=== PATIENT | male | born 1940 | race Two or more races ===

== ENCOUNTER 2021-03-27 15:27 | Emergency (ER) | payer OTHER ==
[~2021-03-27] VITALS: Ht 165.1 cm; Wt 53.1 kg
[2021-03-27] MEDS ORDERED: METAMUCIL0.4 GM (15:49)
[2021-03-27] MEDS ORDERED: ARICEPT5 MG (15:50)
[2021-03-27] MEDS ORDERED: MAXIMUM D3325 MCG (15:50)
[2021-03-27] MEDS ORDERED: GILTUSS TR TAB1 EACH (15:50)
[2021-03-27] MEDS ORDERED: TRAZODONE HCL50 MG (15:51)
[2021-03-27] MEDS ORDERED: SILVASTATIN (15:51)
[2021-03-28] MEDS ORDERED: INTESTINEX680 M1 PO (11:07)
[2021-03-28] MEDS ORDERED: PEPCID AC20 MG PO (11:07)
== END 2021-03-28 11:16 | disposition home or self-care (01) ==
LOC: ER 15:27
DX: R10.813 Right lower quadrant abdominal tenderness (principal); K57.30 Diverticulosis of large intestine without perforation or abscess without bleeding